=== PATIENT | male | born 1955 | race Caucasian/White ===

== ENCOUNTER 2017-01-17 16:41 | Emergency (ER) | payer OTHER ==
[~2017-01-17] VITALS: Ht 182.9 cm; Wt 80.0 kg
[~2017-01-17 16:41] MED LIST: LEVA750T PO; SYMB160A INH; TYLETAB34 PO; VENTAER INH
[2017-01-17 16:43] VITALS: BP 137/66; PULSE 87; RESP 18; TEMP 98.8; O2SAT 97
--- NOTE | 2017-01-17 20:53 | PD ---
HPI Chief Complaint: Lump, Cyst, Hernia Time Seen by Provider: 20:47 Travel History International Travel<30 days: No Contact w/Intl Traveler<30days: No Traveled to known affect area: No History of Present Illness HPI Patient comes in complaining of possible inguinal hernia the first noticed approximately a month ago. Patient states pain began when he was at work. He states he was seen in urgent care yesterday and diagnosed with inguinal hernia was instructed to come to the emergency department pain got severe. Patient states last night pain got severe dropping him to his knees, but after about 15 minutes is able to get up as a pain improved and he went to work today. Patient states that he is having burning sensation in his area that is worse with certain movement, heavy lifting, coughing, and trying to have a bowel movement. Patient denies any loss or change in bowel or bladder. Denies any fevers, trauma, nausea, vomiting, or fevers. Patient reports he received a 2 day supply of Grafton's from the urgent care yesterday for the pain that is helping a little. Patient is requesting to be admitted to the hospital to have it surgically repaired. PFSH Past Medical History Autoimmune Disease: No Cancer: No Cardiovascular Problems: No Diabetes: No Diminished Hearing: No Endocrine: No GERD: Yes Genitourinary: No Immune Disorder: No Musculoskeletal: Yes Neurologic: No Psychiatric: No Reproductive: No Respiratory: No Shingles: Yes (CHILDHOOD?) Tetanus Vaccination: Unknown Past Surgical History Abdominal Surgery: Yes (RIGHT INGUINAL HERNIA REPAIR X2) Appendectomy: Yes Body Medical Devices: RIGHT ANKLE PLATES AND SCREWS Thoracic Surgery: Yes (APPENDECTOMY) Other Surgery: Yes Social History Alcohol Use: Yes ("SOMETIMES") Tobacco Use: Yes (1PPD) Substance Use: Yes (WEED, LAST MONDAY, SMALL AMOUNT) Allergies-Medications (Allergen,Severity, Reaction): Coded Allergies: No Known Allergies (Unverified , 01/17/17) Reported Meds & Prescriptions Reported Meds & Active Scripts Active Tramadol (Tramadol HCl) 50 Mg Tab 50 Mg PO Q8H PRN Review of Systems Except as stated in HPI: all other systems reviewed are Neg Physical Exam Narrative GENERAL: Well-developed, well nourished, in no acute distress, and non-ill appearing. SKIN: Focused skin assessment warm and dry. HEAD: Atraumatic. Normocephalic. EYES: Pupils equal and round. EOMI. No scleral icterus. No injection or drainage. ENT: No nasal bleeding or discharge. Mucous membranes pink and moist. NECK: Trachea midline. Supple. No nuclear rigidity. CARDIOVASCULAR: Regular rate and rhythm. No murmur appreciated. RESPIRATORY: No accessory muscle use. No respiratory distress. Clear to auscultation. Breath sounds equal bilaterally. GASTROINTESTINAL: Abdomen soft, non-tender, nondistended. Hepatic and splenic margins not palpable. Normal bowel sounds 4. No pulsatile mass. Patient is a palpable defect noted left inguinal area. There is no bowel poking through currently there is no incarceration or strangulation. It is mildly tender to palpation. This exam was performed with presence of staff air tactical officer Rachel. MUSCULOSKELETAL: No obvious deformities. No clubbing. No cyanosis. No edema. Full range of motion. Patient is able to ambulate with a normal gait without difficulty in the emergency department. NEUROLOGICAL: Awake and alert. No obvious cranial nerve deficits. Motor grossly within normal limits. Normal speech. PSYCHIATRIC: Appropriate mood and affect; insight and judgment normal. Data Data Last Documented VS Vital Signs Date Time Temp Pulse Resp B/P Pulse Ox O2 Delivery O2 Flow Rate FiO2 01/17/17 20:36 78 18 01/17/17 16:43 98.8 137/66 97 Room Air MDM Medical Decision Making Medical Screen Exam Complete: Yes Emergency Medical Condition: No Differential Diagnosis Inguinal hernia, incarcerated hernia, other Narrative Course There was no significant history of vomiting or diarrhea and no fever. The patient appeared comfortable, and well hydrated. There was no evidence of an acute, surgical abdomen at this time. There was no clinical evidence to support appendicitis, cholecystitis/cholelithiasis, pancreatitis, perforation of gastric ulcer, colitis, diverticulitis, bacterial peritonitis, obstruction, volvulus, hernial incarceration or strangulation at this time. There was no evidence to support vascular pathology such as AAA, mesenteric ischemia. There was also no clinical evidence by history, exam or risk factors to suggest atypical presentation of cardiac disease such as ACS, AMI or atypical angina. No evidence to suggest genitourinary etiology as well. Clinical picture was discussed with the patient, as well as plan of care. The patient was instructed to follow up with their physician and/or general surgeon. Abdominal pain warnings were discussed with the patient. The patient is to return if worsens, pain worsens or changes, develop fever, inability to tolerate fluids with or without vomiting, unable to establish follow up or as needed. The patient agrees with plan. Patient in no obvious distress upon re-evaluation. I discussed patient with Dr. Diaz prior to discharge, who is in agreement with plan of care and disposition.. Patient was asked if they wanted to speak to my attending, which the patient did not wish to do at this time. Any questions/concerns in reference to patient diagnosis/condition discussed and clarified prior to patient's discharge. Reinforced sheer importance of close follow up with patient 's primary physician or primary care clinic and/or general surgeon. Instructed patient to return to ED immediately, if symptoms return/worsen. Pt showed understanding of above instructions. Further instructions and recommendations were detailed in discharge paperwork. Pt ambulated without difficulty out of ED at discharge. Diagnosis Primary Impression: Reducible left inguinal hernia Referrals: General Surgeon Patient Instructions: General Instructions, Inguinal Hernia (ED) Additional Instructions: Follow-up with your primary care physician and general surgery for reevaluation and possible surgery. Take all medication as prescribed. Acquire a pair of Spanks for additional support. Return to the emergency department if symptoms get worse. Med/Other Pt SpecificInfo: Prescription(s) given Scripts Tramadol 50 Mg Tab50 Mg PO Q8H PRN (PAIN) #9 TAB Ref 0 Prov:Audra Diaz MD 01/17/17 Disposition: 01 DISCHARGE HOME Condition: Stable Flynn Turner Jan 17, 2017 20:53
[2017-01-17] MEDS ORDERED: TRAM50TA PO (21:23)
== END 2017-01-17 21:55 | disposition home or self-care (01) ==
LOC: NEPE 16:41
DX: K40.90 Unilateral inguinal hernia, without obstruction or gangrene, not specified as recurrent (principal)
CPT/HCPCS: 99283